=== PATIENT | male | born 1975 | race Hispanic/Latino ===

== ENCOUNTER 2020-11-26 16:49 | Observation (INO) | payer SELFPAY ==
[~2020-11-26 16:49] MED LIST: Dexamethasone 20 MG/5 ML VIAL ONE; Ketorolac Tromethamine 30 MG/ML VIAL ONE; Lidocaine 1% PF 5 ML VIAL ONE; Ondansetron PF 4 MG/2 ML Vial ONE; PROPOFOL 200 MG/20 ML VIAL ONE; ePHEDrine 50 MG/ML VIAL ONE
[2020-11-26] MEDS ORDERED: Bupivacaine 0.5% 10 ML VIAL ONE (17:03)
[2020-11-26] MEDS ORDERED: Boostrix 0.5 ML (Tdap) VIAL ONE (17:44)
[2020-11-26] MEDS ORDERED: Bupivacaine PF 0.5% 30 ML VIAL ONE (19:59)
[2020-11-26] MEDS ORDERED: Sodium Chloride 0.9% 30 ML ONE (20:00)
[2020-11-26] MEDS ORDERED: Bacitracin Zinc Ointment 30 gm TUBE ONE (20:00)
[2020-11-26] MEDS ORDERED: Thrombin 5000 UNITS/5 ML VIAL ONE (20:00)
[2020-11-26] MEDS ORDERED: Gentamicin Sulfate 80 MG in Premix Bag 1 BAG IVPB SCH (20:00)
[2020-11-26] MEDS ORDERED: HYDROmorphone 0.5 MG/0.5 ML SYRINGE ONE (20:46)
[2020-11-26 21:09] LABS: SARS-CoV-2 NAA Rapid Test Not Detected (NotDetected)
[2020-11-26] MEDS ORDERED: HYDROmorphone 2 MG/ML VIAL SLOW IVP PRN (23:21)
[2020-11-26] MEDS ORDERED: Promethazine HCl 25 MG/ML VIAL SLOW IVP PRN (23:21)
[2020-11-26] MEDS ORDERED: Ondansetron HCl/PF 4 MG/2 ML Vial IVP PRN (23:21)
[2020-11-26] MEDS ORDERED: Promethazine HCl 25 MG/ML VIAL IM PRN (23:21)
[2020-11-26] MEDS ORDERED: Morphine 4 MG/ML VIAL SLOW IVP PRN (23:25)
[2020-11-26] MEDS ORDERED: traMADol HCl 50 MG TAB PO PRN (23:25)
[2020-11-26] MEDS ORDERED: Bisacodyl 10 MG SUPP PR PRN (23:25)
[2020-11-26] MEDS ORDERED: Ondansetron PF 4 MG/2 ML Vial SLOW IVP PRN (23:25)
[2020-11-26] MEDS ORDERED: Fentanyl 100 MCG/2 ML VIAL SLOW IVP PRN (23:25)
[2020-11-26] MEDS ORDERED: Meperidine HCl/PF 25 MG/ML VIAL IM PRN (23:29)
[2020-11-26] MEDS ORDERED: Communication Order-Pharmacy FS PRN (23:30)
[2020-11-26] MEDS ORDERED: TETANUS AND DIPHTHERIA TOX/PF 0.5 ML DISP.SYRIN IM SCH (23:30)
[2020-11-27] MEDS: Ketorolac Tromethamine 30 MG/ML VIAL IVP SCH ×4 (00:59→18:22)
[2020-11-27] MEDS: Sodium Chloride 0.9% 100 ML IV SCH ×2 (02:10→02:30)
[2020-11-27] MEDS: Sodium Chloride 0.9% 1,000 ML IV SCH ×2 (02:14→12:19)
[2020-11-27] MEDS: HYDROcodone/Acetaminophen 5/325 mg Tablet PO PRN ×4 (02:42→18:18)
[2020-11-27] MEDS ORDERED: FLU VACC QS2020-21(6MOS UP)/PF 60 MCG/0.5 ML SYRINGE IM ONE (09:00)
[2020-11-27] MEDS ORDERED: VANCOMYCIN 1.25 GM/250 ML BAG 1.25 GM in Premix Bag 1 BAG IVPB SCH (09:00)
[2020-11-27] MEDS ORDERED: Aspirin 81 mg Enteric Coated Tablet PO SCH (09:00)
[2020-11-27 15:25] VITALS: BP 101/65; TEMP 97.3
[2020-11-28] MEDS ORDERED: Ketorolac Tromethamine 30 MG/ML VIAL IVP PRN (06:00)
== END 2020-11-27 18:23 | disposition home or self-care (01) ==
LOC: ERS 16:49 → SDC/OP 21:18 → SJJU 22:00
PROVIDERS: ADMIT Orthopaedic Surgery Hand Surgery; ATTEND Orthopaedic Surgery Hand Surgery
PROC: 0PSV04Z Reposition Left Finger Phalanx with Internal Fixation Device, Open Approach (ICD-10-PCS; principal; 2020-11-26)
PROC: 0HQQXZZ Repair Finger Nail, External Approach (ICD-10-PCS; 2020-11-26)
DX: S67.195A Crushing injury of left ring finger, initial encounter (principal); S62.635B Displaced fracture of distal phalanx of left ring finger, initial encounter for open fracture; Z20.822 Contact with and (suspected) exposure to COVID-19; W23.0XXA Caught, crushed, jammed, or pinched between moving objects, initial encounter
CPT/HCPCS: 76000; 90471; 90715; 96365; 96366; 96367; 96375; 96376; G0378; J0690; J1100; J1170; J1580; J1885; J2270; J2405; J2704; J3370; J3490; S0020; U0002

== ENCOUNTER 2023-07-22 15:41 | Emergency (ER) | payer OTHER ==
[2023-07-22 16:30] LABS: #Eosinphils 0.1 thou/uL (0.0-0.7); #Monocytes 0.4 thou/uL (0.11-0.59); #Neutrophils 3.4 thou/uL (1.40-6.50); %Basophils 0.7 % (0.0-1.0); %Eosinophils 1.1 % (0.0-10.0); %Lymphocytes 30.6 % (21.0-51.0); %Monocytes 7.8 % (0.0-10.0); %Neutrophils 59.6 % (42.0-75.0); Hematocrit 47.8 % (42.0-52.0); Hemoglobin 16.6 g/dL (14.0-18.0); Mean Corpuscular HGB CONC 34.7 g/dL (32.0-36.0); Mean Corpuscular Hemoglobin 30.2 pg (27.0-31.0); Mean Corpuscular Volume 86.9 fl (78.0-98.0); Mean Platelet Volume 10.6 fL (7.4-10.4); Platelet Count 222 10x3/uL (130-400); RBC Distribution Width 11.9 % (11.5-14.5); White Blood Cell (WBC) Count 5.7 10x3/uL (4.8-10.8)
[2023-07-22] MEDS ORDERED: Ketorolac Tromethamine 30 MG/ML VIAL ONE (16:51)
[2023-07-22] MEDS ORDERED: Ondansetron PF 4 MG/2 ML Vial ONE (16:51)
[2023-07-22] MEDS ORDERED: Pantoprazole 40 MG VIAL ONE (16:51)
[2023-07-22 16:53] LABS: ALT (SGPT) 39 U/L (8-55); AST (SGOT) 22 U/L (5-34); Alkaline Phosphatase 80 U/L (40-110); Anion Gap 11 mmol/L (10-20); BUN (Urea Nitrogen) 8 mg/dL (8.9-20.6); Bilirubin, Total 0.5 mg/dL (0.2-1.2); Calc. Creatinine Clearance 0 mL/min (70-130); Calcium 10.1 mg/dL (7.8-10.44); Carbon Dioxide 29 mmol/L (22-29); Chloride 103 mmol/L (98-107); Estimated GFR 102; Globulin 2.7 g/dL (2.4-3.5); Glucose 93 mg/dL (70-105); Lipase 24 U/L (8-78); Potassium 4.2 mmol/L (3.5-5.1); Protein, Total 7.7 g/dL (6.0-8.3); Sodium 139 mmol/L (136-145)
== END 2023-07-22 17:30 | disposition home or self-care (01) ==
LOC: ERS 15:41
DX: K29.70 Gastritis, unspecified, without bleeding (principal)
CPT/HCPCS: 74176; 80053; 83690; 85025; 96374; 96375; C9113; J1885; J2405